=== PATIENT | female | born 1995 | race Caucasian/White ===

== ENCOUNTER 2016-08-29 14:05 | Emergency (ER) | payer BC ==
[~2016-08-29] VITALS: Ht 152.4 cm; Wt 52.0 kg
[2016-08-29 14:11] VITALS: BP 114/74; PULSE 122; RESP 15; TEMP 98.3; O2SAT 90
[2016-08-29 14:52] VITALS: BP 114/65; PULSE 98; RESP 16; TEMP 98.1; O2SAT 100
[2016-08-29] MEDS ORDERED: SERT-129 PO (15:08)
[2016-08-29] MEDS ORDERED: BUPR100CR PO (15:08)
[2016-08-29] MEDS ORDERED: LEVO75TA3 PO (15:08)
[2016-08-29] MEDS ORDERED: RITA20TA PO (15:08)
--- NOTE | 2016-08-29 15:27 | PD ---
HPI Chief Complaint: Laceration/Skin Injury Time Seen by Provider: 15:27 Travel History International Travel<30 days: No Contact w/Intl Traveler<30days: No Traveled to known affect area: No History of Present Illness HPI 21-year-old female presents to the emergency department reporting a laceration between her first and second digits that occurred last night. She states it occurred approximately 13 hours ago. She states she fell and landed on a piece of metal causing a laceration. She states that she was intoxicated at the time. She denies any other injury. She states that she was scared and did not want to the emergency department. However, she went to the beach today before coming to the emergency department. She denies any chronic medical problems or take any prescribed medications. She states her tetanus immunization is up-to- date. No other complaints. She denies any chance of . PFSH Past Medical History GERD: Yes Tetanus Vaccination: > 5 Years ?: Not Social History Alcohol Use: Yes Tobacco Use: No Substance Use: No Allergies-Medications (Allergen,Severity, Reaction): Coded Allergies: Ceftin (Verified Allergy, Severe, Hives, 08/29/16) Zithromax (Verified Allergy, Severe, Hives, 08/29/16) Reported Meds & Prescriptions Reported Meds & Active Scripts Active Bactrim DS (Sulfamethoxazole-Trimethoprim) 800-160 Mg Tab 1 Tab PO BID Ibuprofen 800 Mg Tab 800 Mg PO TID PRN Reported Ritalin IR (Methylphenidate HCl) 20 Mg Tab 20 Mg PO DAILY Wellbutrin SR 12 HR (Bupropion HCl) 100 Mg Tab 50 Mg PO DAILY Sertraline (Sertraline HCl) 100 Mg Tab 100 Mg PO DAILY Levothyroxine (Levothyroxine Sodium) 75 Mcg Tab 75 Mcg PO DAILY Review of Systems Except as stated in HPI: all other systems reviewed are Neg Physical Exam Narrative GENERAL: Well-developed well-nourished female patient, ambulatory. Afebrile. SKIN: Warm and dry. Patient has a 1 cm laceration to the area between the first and second digit on the left hand. I am able to visualize the base of the wound and it is superficial. HEAD: Normocephalic. Atraumatic. EYES: No scleral icterus. No injection or drainage. NECK: Supple, trachea midline. No JVD or lymphadenopathy. CARDIOVASCULAR: Regular rate and rhythm without murmurs, gallops, or rubs. Left radial pulse 2+. RESPIRATORY: Breath sounds equal bilaterally. No accessory muscle use. Lungs sounds are clear to auscultation. GASTROINTESTINAL: Abdomen soft, non-tender, nondistended. MUSCULOSKELETAL: No cyanosis, or edema. Patient has full strength and full range of motion of all digits of the left hand. She has full sensation to the distal aspect of the digits of the left hand. Data Data Last Documented VS Vital Signs Date Time Temp Pulse Resp B/P Pulse Ox O2 Delivery O2 Flow Rate FiO2 08/29/16 14:52 98.1 98 16 114/65 100 Orders Sulfamet-Trimeth Ds 800-160 Mg (Bactrim (08/29/16 15:30) Ibuprofen (Motrin) (08/29/16 15:30) [facility] Medical Decision Making Medical Screen Exam Complete: Yes Emergency Medical Condition: Yes Medical Record Reviewed: Yes Differential Diagnosis Laceration versus abrasion versus contusion Narrative Course 21 year old female presents to the emergency department for evaluation of a laceration to the area between the first and second digits of her left hand. This occurred approximately 14 hours ago and the patient has went to the beach, although she did not go into the water, today. It is approximately 1 cm and superficial. I do not feel that this is amenable to sutures due to risk of infection and prolonged time since the injury occurred. It is thoroughly cleaned with sterile saline and steristrips are applied. She will be started on Bactrim and is given her first dose in the emergency department. She verbalizes agreement and understanding to plan. She will also be discharged with a prescription for Ibuprofen for pain. Diagnosis Primary Impression: Hand laceration Qualified Code: S61.412A - Hand laceration, left, initial encounter Referrals: Primary Care Physician call for appointment Patient Instructions: General Instructions, Laceration Without Closure (ED) Additional Instructions: Clean gently with soap and water and apply over the counter antibiotic ointment. Steri strips will fall off on their own. Take antibiotic as directed until gone. Take Ibuprofen as directed as needed with food for pain. Follow-up with your primary care physician. Return to the emergency department for any acute worsening of symptoms. Med/Other Pt SpecificInfo: Prescription(s) given Scripts Sulfamethoxazole-Trimethoprim (Bactrim DS)800-160 Mg Tab1 Tab PO BID #14 TAB Ref 0 Prov:Christin Cordova 08/29/16 Ibuprofen 800 Mg Gia806 Mg PO TID PRN (PAIN SCALE 1 TO 10) #21 TAB Ref 0 Prov:Christin Cordova 08/29/16 Disposition: 01 DISCHARGE HOME Condition: Stable Christin Cordova Aug 29, 2016 15:27
[2016-08-29] MEDS ORDERED: SULFAMETHOXAZOLE-TRIMETHOPRIM DS 800-160 MG TAB PO ONE (15:30)
[2016-08-29] MEDS ORDERED: IBUPROFEN 600 MG TAB PO ONE (15:30)
[2016-08-29] MEDS ORDERED: BACT800T5 PO ×2 (15:56→15:58)
[2016-08-29] MEDS ORDERED: IBUP800T23 PO (15:56)
== END 2016-08-29 16:43 | disposition home or self-care (01) ==
LOC: NEPB 14:05
DX: S61.412A Laceration without foreign body of left hand, initial encounter (principal); W01.118A Fall on same level from slipping, tripping and stumbling with subsequent striking against other sharp object, initial encounter; Y93.01 Activity, walking, marching and hiking
CPT/HCPCS: 99282